=== PATIENT | female | born 1950 | race Caucasian/White ===

== ENCOUNTER 2023-06-25 11:39 | Emergency (ER) | payer MEDICARE, SELFPAY ==
[2023-06-25 11:40] VITALS: BP 194/97
[2023-06-25 12:07] LABS: % Eosinophils 3.9 % (0-6); % Immature Granulocytes 0.4 % (0-0.5); % Lymphocytes 11.6 % (20.5-51.1); % Monocytes 13.8 % (1.7-9.3); % Neutrophils 69.3 % (42.2-75.2); Absolute Basophils 0.1 10^3/uL (0-0.2); Absolute Eosinophils 0.4 10^3/uL (0-0.7); Absolute Lymphocytes 1.2 10^3/uL (1.2-3.4); Absolute Monocytes 1.4 10^3/uL (0.1-0.6); Absolute Neutrophils 7.1 10^3/uL (1.4-6.5); Hematocrit 37.3 % (37.0-47.0); Hemoglobin 12.5 g/dL (12.0-16.0); Mean Corp Hgb Conc. 33.5 g/dL (33.0-37.0); Mean Corpuscular Hgb 29.7 pg (27.0-31.0); Mean Corpuscular Volume 88.6 fL (81.0-99.0); Mean Platelet Volume 8.9 fL (7.4-10.4); Nucleated Red Blood Cells % 0 %; Platelet Count 416 10^3/uL (130-400); Red Blood Cell Count 4.21 10^6/uL (4.20-5.40); Red Cell Dist. Width 13.4 % (11.5-14.5); White Blood Cell Count 10.2 10^3/uL (4.8-10.8)
[2023-06-25 12:20] LABS: ALT (SGPT) 27 U/L (0-35); AST (SGOT) 29 U/L (14-36); Albumin 4.1 g/dl (3.5-5.0); Alkaline Phosphatase 35 U/L (38-126); Blood Urea Nitrogen 19 mg/dl (7-17); Calcium 9.8 mg/dl (8.4-10.2); Carbon Dioxide 27 mmol/L (22-30); Chloride 99 mmol/L (98-107); Glucose 114 mg/dl (70-99); Potassium 4.4 mmol/L (3.5-5.1); Sodium 135 mmol/L (135-145); Total Bilirubin 0.8 mg/dl (0.2-1.3); Total Protein 7.7 g/dl (6.3-8.2); eGFR > 60.00
[2023-06-25 12:21] VITALS: BP 170/77
--- NOTE | 2023-06-25 12:24 | ED.GENMED ---
History of Present Illness
<Katt Huitron PA-C - Last Filed: 06/25/23 15:41>
General
Chief Complaint: Blood Pressure Problem
Source: patient
Time Seen by Provider: 06/25/23 12:22
Nursing documentation reviewed up to this point in time: agreed with
Travel History
Have you had any contact with someone who has COVID-19?: No
Do you have any symptoms of coronavirus? Fever > 100 degrees, chills, cough, shortness of breath, sore throat, loss of taste or smell, muscle aches, or headache?: No
History of Present Illness
History of Present Illness:
This is a 71-year-old female with past medical history of hypertension presenting emergency department today with concerns of high blood pressure for the past 2 days. Patient states that she has been having troubles with her blood pressure on and
off for many years. She states she recently reached a regimen that works for her, 1 tablet of hydrochlorothiazide, and 1 tablet of her telmisartan once daily. She started these medications 2 weeks ago and states that her blood pressure has been
normotensive up until 2 days ago. Patient denies any changes in her diet. Patient states that she is on low-sodium diet. Patient denies any recent illnesses, any chronic pain, near his hospitalizations, any recent stress currently. Patient has a
follow-up appoint with her blood pressure on Thursday with her primary care provider. Patient also notes some 'pressure 'behind her eyes. Patient denies chest pain, shortness of breath.
Review of Systems
<Katt Huitron PA-C - Last Filed: 06/25/23 15:41>
Review of Systems
All Other Systems: ROS reviewed and negative except as documented in HPI and ROS
Phy Exam
<Katt Huitron PA-C - Last Filed: 06/25/23 15:41>
Physical Exam
Physical Exam:
General: Patient is well-appearing and in no acute distress
Skin: warm and dry, no rashes or lesions
Head: Normocephalic
Cardiac: Regular rate and rhythm, no murmurs
Pulm: No respiratory effort, lung sounds clear to auscultation bilaterally
Abdomen: Nontender to palpation
Neuro: Cranial nerves II through XII intact. AAOx3. Kessqt-yd-rpho testing, unwu-to-[id number] testing intact. No focal logic deficits.
Course
<Katt Huitron PA-C - Last Filed: 06/25/23 15:41>
Orders/Labs/Results
Orders:
Orders
06/25/23 11:42
Electrocardiogram (*1) Urgent
Reason for Study: Hypertension, Benign
EKG- Treatment ONCE
06/25/23 11:54
Complete Blood Count/With Diff Urgent
Comprehensive Metabolic Panel Urgent
06/25/23 13:27
CT Head W/o Iv Contrast Urgent
Comment:
Reason For Exam: pain behind eyes, high blood pressure
Abnormal Lab Results
06/25/23
11:54
Plt Count 416 H 10^3/uL
(130-400)
Absolute Neuts (auto) 7.1 H 10^3/uL
(1.4-6.5)
Absolute Monos (auto) 1.4 H 10^3/uL
(0.1-0.6)
Lymphocytes % 11.6 L %
(20.5-51.1)
Monocytes % 13.8 H %
(1.7-9.3)
BUN 19 H mg/dl
(7-17)
Glucose 114 H mg/dl
(70-99)
Alkaline Phosphatase 35 L U/L
(38-126)
06/25/23 11:54
06/25/23 11:54
Vital Signs
Initial and Last Documented VS:
Initial Vital Signs
Temp Pulse Resp BP Pulse Ox
98.1 F 92 18 194/97 99
06/25/23 11:40 06/25/23 11:40 06/25/23 11:40 06/25/23 11:40 06/25/23 11:40
Last Documented Vital Signs
Temp Pulse Resp BP Pulse Ox
98.1 F 81 18 162/86 99
06/25/23 11:40 06/25/23 15:00 06/25/23 15:00 06/25/23 15:00 06/25/23 15:00
<Jose Sanders, DO - Last Filed: 06/25/23 15:04>
Orders/Labs/Results
Orders:
Orders
06/25/23 11:42
Electrocardiogram (*1) Urgent
Reason for Study: Hypertension, Benign
EKG- Treatment ONCE
06/25/23 11:54
Complete Blood Count/With Diff Urgent
Comprehensive Metabolic Panel Urgent
06/25/23 13:27
CT Head W/o Iv Contrast Urgent
Comment:
Reason For Exam: pain behind eyes, high blood pressure
Abnormal Lab Results
06/25/23
11:54
Plt Count 416 H 10^3/uL
(130-400)
Absolute Neuts (auto) 7.1 H 10^3/uL
(1.4-6.5)
Absolute Monos (auto) 1.4 H 10^3/uL
(0.1-0.6)
Lymphocytes % 11.6 L %
(20.5-51.1)
Monocytes % 13.8 H %
(1.7-9.3)
BUN 19 H mg/dl
(7-17)
Glucose 114 H mg/dl
(70-99)
Alkaline Phosphatase 35 L U/L
(38-126)
06/25/23 11:54
06/25/23 11:54
Vital Signs
Initial and Last Documented VS:
Initial Vital Signs
Temp Pulse Resp BP Pulse Ox
98.1 F 92 18 194/97 99
06/25/23 11:40 06/25/23 11:40 06/25/23 11:40 06/25/23 11:40 06/25/23 11:40
Last Documented Vital Signs
Temp Pulse Resp BP Pulse Ox
98.1 F 81 18 162/86 99
06/25/23 11:40 06/25/23 15:00 06/25/23 15:00 06/25/23 15:00 06/25/23 15:00
<Katt Huitron PA-C - Last Filed: 06/25/23 15:41>
MDM/Problems Addressed
Differential Diagnosis Includes:
ddx include essential hypertension, hypothyroidism, renal artery stenosis,
MDM/Problems Addressed:
hypertension
Chronic conditions affecting care: HTN
Acute Exacerbation and/or Progression of Chronic Illness: HTN
<Katt Huitron PA-C - Last Filed: 06/25/23 15:41>
*Pulse Oximetry
Patient hypoxic: no
*EKG
Interpreted by ED Provider?: Yes
EKG Intrepretation Date: 06/25/23
Interpretation: normal
Comparison EKG: no comparison EKG present
Heart Rate: 80
Rate: normal
Rhythm: sinus
[place]: normal axis
Interval: normal interval and normal QT interval
QRS Pattern: normal QRS
Ischemia: no ischemia
*Critical Care Note
Total Time (30-74mins, 75-104mins- exclusive of procedures): Not Applicable
Data Reviewed
Review of Other/Old Records Reveals: Records (Reviewed hand clinic discharge summary) and Discharge Summary (No discharge summary in [facility].)
Source: patient
<Katt Huitron PA-C - Last Filed: 06/25/23 15:41>
Patient Management
Escalation/DeEscalation of care consider admission/obs:
This is a 71-year-old female with past medical history of hypertension presenting emergency department today with concerns of high blood pressure for the past 2 days. Patient has been on hydrochlorothiazide and telmilsartan for the past few weeks.
Patient reports that her blood pressure has been well-controlled for the past 2 weeks, except for the last few days she notes her pressures were higher. Patient also has been having pain by her eyes. Her CT of the head was negative for any acute
intracranial hemorrhage. Her EKG here is normal sinus rhythm no ischemic changes. Patient will follow-up with her primary care provider to see if her hydrochlorothiazide or any other medications need to be adjusted. Patient will continue to log
her blood pressure. All patient's questions were answered
ED Attending Note
<Katt Huitron PA-C - Last Filed: 06/25/23 15:41>
-
Portions of this chart may have been created with voice recognition software.� Occasional wrong word or��sound alike� substitutions may have occurred due to the inherent limitations of voice recognition software.
<Jose Sanders DO - Last Filed: 06/25/23 15:04>
ED Attending Note
Patient seen and examined by attending physician: Yes
I performed a history and physical exam of patient and discussed management with resident, I reviewed resident's note and agree with documented findings and plan of care.: Yes
ED Attending Note:
I have reviewed and agree with history and treatment plan by Katt Huitron. My exam revealed 72-year-old female with mild hypertension, normal neurologic exam. She complains of a slight headache behind her eyes. No vision changes. Will
evaluate with CT head, if negative will discharge patient to follow-up with primary care.
Discharge Plan
Departure
Patient Disposition: Home (Routine Discharge)
Date of Disposition: 06/25/23
Time of Disposition: 15:04
Patient with high blood pressure during this ER visit?: Yes
Condition: Good
Discharge Problem:
High blood pressure
Instructions: BLOOD PRESSURE
Activity Restrictions/Additional Instructions:
Please keep your follow-up appointment with your primary care provider this Thursday. Please address your recent blood pressure readings.
Please return to the emergency department should you experience chest pain, shortness of breath, back pain, dizziness, lightheadedness, severe headache, or other concerning signs or symptoms.
Interventions
Interventions:
*Risk Screen - Suicide Last Done: 06/25/23 11:40
*General Assessment Last Done: 06/25/23 11:40
*Neglect/Abuse Screening Last Done: 06/25/23 11:40
ED- Fall Risk Assessment Last Done: 06/25/23 15:14
*ED COVID-19 Vaccine History Last Done: 06/25/23 11:40
*Nursing Disposition Last Done: 06/25/23 15:14
ED- Cardiac Assessment Last Done: 06/25/23 12:22
ED- Neurological Assessment Last Done: 06/25/23 12:22
ED- Pulmonary Assessment Last Done: 06/25/23 12:22
Discharge Date and Time
Discharge Date/Time: 06/25/23 15:24
[2023-06-25 15:00] VITALS: BP 162/86
== END 2023-06-25 15:24 | disposition home or self-care (01) ==
LOC: EMR 11:39
PROVIDERS: EMERGENCY PHYSICIAN Emergency Medicine; FAMILY PHYSICIAN Student in an Organized Health Care Education/Training Program
DX: I10 Essential (primary) hypertension (principal)
CPT/HCPCS: 99285; 70450; 80053; 85025; 93005

== ENCOUNTER → 2023-07-22 07:53 | Outpatient (REF) | payer MEDICARE, SELFPAY | LOC: WDC 07:53 | PROVIDERS: ATTENDING PHYSICIAN Student in an Organized Health Care Education/Training Program | DX: Z12.31 Encounter for screening mammogram for malignant neoplasm of breast (principal) | CPT/HCPCS: 77063; 77067 ==

== ENCOUNTER → 2023-07-31 07:19 | Outpatient (REF) | payer MEDICARE, SELFPAY | LOC: RAD 07:19 | PROVIDERS: ATTENDING PHYSICIAN Internal Medicine Interventional Cardiology; FAMILY PHYSICIAN Student in an Organized Health Care Education/Training Program | DX: I71.40 Abdominal aortic aneurysm, without rupture, unspecified (principal); I10 Essential (primary) hypertension | CPT/HCPCS: 76770 ==

== ENCOUNTER → 2023-09-09 14:14 | Outpatient (REF) | payer MEDICARE, SELFPAY | LOC: RAD 14:14 | PROVIDERS: ATTENDING PHYSICIAN Internal Medicine Interventional Cardiology; FAMILY PHYSICIAN Student in an Organized Health Care Education/Training Program | DX: I10 Essential (primary) hypertension (principal); I71.40 Abdominal aortic aneurysm, without rupture, unspecified | CPT/HCPCS: 93975 ==

== ENCOUNTER → 2024-09-15 19:31 | Outpatient (REF) | payer MEDICARE, SELFPAY | LOC: WDC 19:31 | PROVIDERS: ATTENDING PHYSICIAN Student in an Organized Health Care Education/Training Program | DX: Z12.31 Encounter for screening mammogram for malignant neoplasm of breast (principal) | CPT/HCPCS: 77063; 77067 ==